=== PATIENT | male | born 1985 | race Two or more races ===

== ENCOUNTER 2024-07-11 07:48 | Emergency (ER) | payer BC ==
[~2024-07-11] VITALS: Ht 177.8 cm; Wt 102.1 kg
[2024-07-11 07:58] VITALS: BP 169/90; O2SAT 98
[2024-07-11] MEDS ORDERED: NITROGLYCERIN 0.4 MG TAB.SUBL SL SCH (08:30)
[2024-07-11] MEDS ORDERED: ASPIRIN 325 MG TABLET.EC PO ONE (08:39)
[2024-07-11] MEDS ORDERED: ASPIRIN 325 MG TABLET PO ONE (08:45)
[2024-07-11 09:24] LABS: HEMATOCRIT 45.6 % (39.0-48.0); HEMOGLOBIN 16.2 g/dL (13-16.00); MEAN CELL VOLUME 85.9 fL (80.0-100.00); MEAN CORPUSCULAR HEMOGLOBIN 30.6 pg (27.00-32.0); MEAN CORPUSCULAR HGB CONC 35.6 g/dl (32.0-36.0); PLATELET COUNT 205 K/uL (150-450); RED BLOOD COUNT 5.31 M/uL (4.00-6.00); RED CELL DISTRIBUTION WIDTH 13.1 % (11.5-14.5)
[2024-07-11 10:06] LABS: ALBUMIN 4.3 gm/dL (3.4-5.0); BILIRUBIN TOTAL 0.9 mg/dL (0.3-1.2); CALCIUM 9.3 mg/dL (8.5-10.1); CREATININE SERUM 0.8 mg/dL (0.70-1.30); GFR 107.62; GLOBULINA 3.5 G/DL (2.4-3.5); POTASSIUM 4.11 mEq/L (3.5-5.1); TOTAL PROTEIN 7.8 gm/dL (6.4-8.2)
[2024-07-11] MEDS ORDERED: ATARAX50 MG PO (10:10)
[2024-07-11] MEDS ORDERED: hydrOXYzine HCL 50 MG TABLET PO ONE (10:15)
== END 2024-07-11 13:34 | disposition home or self-care (01) ==
LOC: ER 07:49
PROVIDERS: Preventive Medicine Public Health & General Preventive Medicine
DX: F41.9 Anxiety disorder, unspecified (principal)